=== PATIENT | female | born 1975 | race Caucasian/White ===

== ENCOUNTER 2023-08-11 08:46 | Outpatient (RCR) | payer OTHER, BC, SELFPAY ==
--- NOTE | 2023-08-11 10:38 | OPREHPOC ---
Outpatient Therapy Plan of Care This is a Multidisciplinary Plan of Care that may contain components documented by all disciplines (PT, OT, and ST.) PT Problem 1 PT Problem #1 Knowledge Deficit PT Goal 1 Goal Patient to demonstrate independence with HEP Target Visit 3 PT Problem 2 PT Problem #2 Pain PT Goal 1 Goal 1. Patient to report highest pain at 2/10 2. Patient to report ability to sleep on her R side with no R knee pain Target Visit 9 PT Problem 3 PT Problem #3 Impaired Range of Motion PT Goal 1 Goal Patient to demonstrate R knee AROM 0-120 deg to return to stair navigation at PLOF Target Visit 9 PT Problem 4 PT Problem #4 Impaired Strength PT Goal 1 Goal Patient to demonstrate 5/5 strength of the R knee to improve ability to stand up out of a chair Target Visit 9 PT Problem 5 PT Problem #5 Impaired Functional Mobil PT Goal 1 Goal 1. Patient to score 20% improvement on LEFS 2. Patient to report ability to sit in a chair for >1 hour 3. Patient to report ability to stand for >[address] fork lift Target Visit 9
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
--- NOTE | 2023-08-14 09:02 | PCPTNOTE ---
No call no show this date. Patient called and voicemail was left.
--- NOTE | 2023-08-24 11:15 | PCPTNOTE ---
No call no show. Voicemail left for patient.
--- NOTE | 2023-08-25 07:07 | PCPTNOTE ---
patient cancelled due to work conflict
--- NOTE | 2023-08-26 22:05 | PCPTNOTE ---
patient had to cancel therapy today due to work issues. she will call next week to get back on the schedule.
== END 2023-08-21 20:00 | disposition home or self-care (01) ==
LOC: CHSPT 08:46
PROVIDERS: PCP Family Medicine; Visit Provider Orthopaedic Surgery
DX: S83.411D Sprain of medial collateral ligament of right knee, subsequent encounter (principal)
CPT/HCPCS: 97014; 97110; 97150; 97161; G0283

== ENCOUNTER 2024-02-23 08:15 | Outpatient (RCR) | payer OTHER, BC, SELFPAY ==
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
--- NOTE | 2024-03-08 09:56 | PTOPDC ---
Assessment and note entered by Keli Gomes DPT Evaluation Information Assessment Status Discharge Diagnosis dizziness ICD-10 Condition Codes (PT) Dizziness & Giddiness R42,BPPV H81.12 Onset 01/30/24 Subjective Information patient reports she is back to feeling 100%. she reports she has not had any dizziness and has been able to return to work with no issues. Reported Pain Level Pain Score 0: Self Report Assessment PT Clinical Summary Mrs. Carolina made great progress in skilled PT and met all goals. She denies any occurrence of dizziness or visual disruption. She reports she is sleeping, driving and working without issues. She is independent with HEP and is appropriate for DC at this time. Plan of Care PT Services Indicated No
== END 2024-03-08 11:35 | disposition home or self-care (01) ==
LOC: CHSPT 08:15
PROVIDERS: PCP Family Medicine; Visit Provider Registered Nurse
DX: R42 Dizziness and giddiness (principal)
CPT/HCPCS: 95992; 97110; 97161; 97530